=== PATIENT | female | born 1940 | race Caucasian/White ===

== ENCOUNTER → 2018-09-08 | Outpatient (CLI) | payer OTHER | END | disposition home or self-care (01) | LOC: MAMO-SONO 13:45 → SONOGRAMA 13:49 | DX: E04.8 Other specified nontoxic goiter (principal) ==

== ENCOUNTER 2020-10-15 10:48 | Outpatient (CLI) | payer OTHER | END 2020-10-15 11:06 | disposition home or self-care (01) | LOC: RAD 10:48 | DX: M25.572 Pain in left ankle and joints of left foot (principal); M25.561 Pain in right knee; M25.562 Pain in left knee ==

== ENCOUNTER 2022-12-04 09:28 | Outpatient (CLI) | payer OTHER | END 2022-12-04 09:35 | disposition home or self-care (01) | LOC: RAD 09:28 | PROVIDERS: ATTEND Orthopaedic Surgery | DX: M25.561 Pain in right knee (principal); M25.562 Pain in left knee ==